=== PATIENT | male | born 1985 | race Caucasian/White ===

== ENCOUNTER 2019-11-25 07:01 | Emergency (ER) | payer SELFPAY ==
--- NOTE | 2019-11-25 08:29 | EDPHYS ---
Physician Documentation [facility] Name: Rod Gleason Age: 34 yrs Sex: Male : 1985 Arrival Date: 11/25/2019 Time: 07:05 Bed 17 Private MD: ED Physician Steve Moser HPI: 11/24 07:25 This 34 yrs old Male presents to ER via Ambulatory with complaints of Flu cp Symptoms. 07:25 The patient or guardian reports cough, that is intermittent, with productive sputum, cp flu symptoms, arthralgias. Onset: The symptoms/episode began/occurred 2 day(s) ago. Associated signs and symptoms: Pertinent positives: sore throat, Pertinent negatives: chest pain, diarrhea, fever, vomiting. 07:25 Patient denies any recent travel out of the country and denies any known close contact cp with persons diagnosed with coronavirus. Historical: - Allergies: 07:25 No Known Allergies; iw - Home Meds: 07:25 Adderall XR Oral [Active]; iw - PMHx: 07:25 None; iw - PSHx: 07:25 None; iw - Immunization history:: Adult Immunizations up to date. - Social history:: Smoking status: Patient reports the use of cigarette tobacco products, smokes one-half pack cigarettes per day. ROS: 07:30 Constitutional: Negative for fever, poor PO intake. cp 07:30 Eyes: Negative for injury, pain, redness, and discharge. cp 07:30 ENT: Positive for sore throat, Negative for drainage from ear(s), ear pain, difficulty cp swallowing, difficulty handling secretions. 07:30 Neck: Negative for pain with movement, pain at rest, stiffness. 07:30 Cardiovascular: Negative for chest pain. 07:30 Respiratory: Positive for cough, Negative for wheezing. 07:30 Abdomen/GI: Negative for abdominal pain, nausea, vomiting, and diarrhea. 07:30 Skin: Negative for rash. 07:30 Neuro: Negative for altered mental status, headache, weakness. 07:30 All other systems are negative. Exam: 07:35 Constitutional: The patient appears in no acute distress, alert, awake, non-toxic, well cp developed, well nourished. 07:35 Head/Face: Normocephalic, atraumatic. cp 07:35 Eyes: Periorbital structures: appear normal, Conjunctiva: normal, no exudate, no injection, Lids and lashes: appear normal, bilaterally. 07:35 ENT: External ear(s): are unremarkable, Ear canal(s): are normal, clear, TM's: dullness, bilaterally, Nose: is normal, Mouth: Lips: moist, Oral mucosa: moist, Posterior pharynx: Airway: no evidence of obstruction, patent, Tonsils: appear surgically absent, Uvula: midline, swelling, is not appreciated, erythema, that is moderate, exudate, is not appreciated. 07:35 Neck: ROM/movement: is normal, is supple, no meningismus, no nuchal rigidity, Lymph nodes: no appreciated lymphadenopathy. 07:35 Chest/axilla: Inspection: normal, Palpation: is normal, no crepitus, no tenderness. cp 07:35 Cardiovascular: Rate: tachycardic, Rhythm: regular. 07:35 Respiratory: the patient does not display signs of respiratory distress, Respirations: normal, no use of accessory muscles, no retractions, labored breathing, is not present, Breath sounds: decreased breath sounds, are not appreciated, stridor, is not appreciated, wheezing: is not appreciated. 07:35 Abdomen/GI: Exam negative for discomfort, distension, guarding, Inspection: abdomen appears normal. 07:35 Skin: no rash present. Vital Signs: 07:23 BP 170 / 105; Pulse 116; Resp 18 S; Temp 98.5(O); Pulse Ox 98% on R/A; Weight 90.72 kg; iw Height 5 ft. 10 in. (177.80 cm); Pain 7/10; 08:41 BP 167 / 89; Pulse 108; Resp 18; Temp 98.4; Pulse Ox 100% on R/A; ph 07:23 Body Mass Index 28.70 (90.72 kg, 177.80 cm) iw MDM: 07:22 Patient medically screened. cp 08:00 Differential Diagnosis: Bronchitis Influenza Pharyngitis Otitis Media Pneumonia. cp 08:25 Test interpretation: by ED physician or midlevel provider: plain radiologic studies, cp chest xray negative for infiltrates and focal pneumonia. 08:26 Data reviewed: vital signs, nurses notes, lab test result(s), and as a result, I will cp discharge patient. 08:26 Counseling: I had a detailed discussion with the patient and/or guardian regarding: the cp historical points, exam findings, and any diagnostic results supporting the discharge/admit diagnosis, lab results, to return to the emergency department if symptoms worsen or persist or if there are any questions or concerns that arise at home. 11/24 07:23 Order name: Influenza Screen (a \T\ B); Complete Time: 08:25 cp 11/24 07:23 Order name: Strep; Complete Time: 08:25 cp 11/24 08:25 Interpretation: Abnormal: GP A STREP SC \T\nbsp; GROUP A STREP SCREEN-- \T\nbsp; \T\nbsp; cp POSITIVE. 11/24 07:23 Order name: XRAY Chest Pa And Lat (2 Views) cp Administered Medications: No medications were administered Disposition: 17:14 Co-signature as Attending Physician, Steve Moser MD Did not see or evaluate patient. ps1 Signature for administrative purposes. . Disposition: 11/25/19 08:27 Discharged to Home. Impression: Streptococcal pharyngitis. - Condition is Stable. - Discharge Instructions: Strep Throat. - Prescriptions for Amoxicillin 875 mg Oral Tablet - take 1 tablet by ORAL route every 12 hours for 10 days; 20 tablet. Ibuprofen 800 mg Oral Tablet - take 1 tablet by ORAL route every 8 hours As needed take with food; 30 tablet. - Medication Reconciliation Form, Thank You Letter, Antibiotic Education, Prescription Opioid Use form. - Follow up: Private Physician; When: 2 - 3 days; Reason: Worsening of condition. - Problem is new. - Symptoms are unchanged. Signatures: Dispatcher [employer] Imani Heath RN RN Samantha Scott RN RN ph Srikanth Rodriguez PA PA cp Steve Moser MD MD ps1 Corrections: (The following items were deleted from the chart) 08:41 08:27 11/25/2019 08:27 Discharged to Home. Impression: Streptococcal pharyngitis. ph Condition is Stable. Forms are Medication Reconciliation Form, Thank You Letter, Antibiotic Education, Prescription Opioid Use. Follow up: Private Physician; When: 2 - 3 days; Reason: Worsening of condition. Problem is new. Symptoms are unchanged. cp
--- NOTE | 2019-11-25 08:29 | ER ---
Nurse's Notes [facility] Name: Rod Gleason Age: 34 yrs Sex: Male : 1985 Arrival Date: 11/25/2019 Time: 07:05 Bed 17 Private MD: Diagnosis: Streptococcal pharyngitis Presentation: 11/24 07:23 Chief complaint: Patient states: has had headache and sore throat X 2 days, +cough, iw denies fever, +body aches. Coronavirus screen: The patient has NOT traveled to a country currently being monitored by the [facility] within the last 14 days. Proceed with normal triage procedures. The patient has NOT had contact with any known and/or suspected case of coronavirus. Proceed with normal triage procedures. Ebola Screen: Patient negative for fever greater than or equal to 101.5 degrees Fahrenheit, and additional compatible Ebola Virus Disease symptoms Patient denies exposure to infectious person. Patient denies travel to an Ebola-affected area in the 21 days before illness onset. No symptoms or risks identified at this time. Initial Sepsis Screen: Does the patient meet any 2 criteria? HR > 90 bpm. No. Patient's initial sepsis screen is negative. Does the patient have a suspected source of infection? No. Patient's initial sepsis screen is negative. Risk Assessment: Do you want to hurt yourself or someone else? Patient reports no desire to harm self or others. 07:23 Method Of Arrival: Ambulatory iw 07:23 Acuity: IRINA 4 iw Historical: - Allergies: 07:25 No Known Allergies; iw - Home Meds: 07:25 Adderall XR Oral [Active]; iw - PMHx: 07:25 None; iw - PSHx: 07:25 None; iw - Immunization history:: Adult Immunizations up to date. - Social history:: Smoking status: Patient reports the use of cigarette tobacco products, smokes one-half pack cigarettes per day. Screenin:09 Abuse screen: Denies threats or abuse. Denies injuries from another. Nutritional ph screening: No deficits noted. Tuberculosis screening: No symptoms or risk factors identified. Fall Risk None identified. Assessment: 08:11 General: Appears in no apparent distress. comfortable, well groomed, Behavior is calm, ph cooperative, appropriate for age, Denies fever. Pain: Complains of pain in "body aches". Neuro: Level of Consciousness is awake, alert, obeys commands, Oriented to person, place, time, situation. Cardiovascular: Capillary refill < 3 seconds in bilateral fingers Patient's skin is warm and dry. Respiratory: Reports cough that is Airway is patent Respiratory effort is even, unlabored, Respiratory pattern is regular, symmetrical, Denies shortness of breath. GI: No signs and/or symptoms were reported involving the gastrointestinal system. Derm: Skin is intact, is healthy with good turgor, Skin is pink, warm \\T\\ dry. Musculoskeletal: Circulation, motion, and sensation intact. Range of motion: intact in all extremities. Vital Signs: 07:23 BP 170 / 105; Pulse 116; Resp 18 S; Temp 98.5(O); Pulse Ox 98% on R/A; Weight 90.72 kg; iw Height 5 ft. 10 in. (177.80 cm); Pain 7/10; 08:41 BP 167 / 89; Pulse 108; Resp 18; Temp 98.4; Pulse Ox 100% on R/A; ph 07:23 Body Mass Index 28.70 (90.72 kg, 177.80 cm) iw ED Course: 07:05 Patient arrived in ED. ag5 07:17 Srikanth Rodriguez PA is PHCP. cp 07:17 Steve Moser MD is Attending Physician. cp 07:25 Triage completed. iw 07:25 Arm band placed on. iw 07:30 Flu and/or RSV swab sent to lab. Strep swab sent to lab. em1 07:38 XRAY Chest Pa And Lat (2 Views) In Process Unspecified. EDMS 08:08 Samantha Scott, RN is Primary Nurse. ph 08:10 Patient has correct armband on for positive identification. Bed in low position. Call ph light in reach. Side rails up X 1. Pulse ox on. NIBP on. Door closed. Noise minimized. Warm blanket given. 08:40 No provider procedures requiring assistance completed. IV discontinued, intact, ph bleeding controlled, No redness/swelling at site. Pressure dressing applied. Administered Medications: No medications were administered Outcome: 08:27 Discharge ordered by . cp 08:39 Discharged to home ambulatory, with significant other. ph 08:39 Condition: good 08:39 Discharge instructions given to patient, Instructed on discharge instructions, follow up and referral plans. Demonstrated understanding of instructions, follow-up care, medications, Prescriptions given X 2. 08:41 Patient left the ED. ph Signatures: Dispatcher [employer] Imani Heath RN RN Josué Bunch em1 Samantha Scott RN RN ph Srikanth Rodriguez, KOBE Angel, Guille ag5
--- NOTE | 2019-11-25 08:39 | RAD REPORT ---
EXAM DESCRIPTION: RAD - Chest Pa And Lat (2 Views) - 11/25/2019 7:39 am CLINICAL HISTORY: COUGH Chest pain. COMPARISON: No comparisons FINDINGS: The lungs are clear. The heart is normal in size. No displaced fractures. IMPRESSION: No acute or concerning finding suspected.
[2019-11-25 08:51] VITALS: BP 167/89; TEMP 98.4; O2SAT 100
== END 2019-11-25 08:41 | disposition home or self-care (01) ==
LOC: ER 07:01
DX: J02.0 Streptococcal pharyngitis (principal); F17.210 Nicotine dependence, cigarettes, uncomplicated
CPT/HCPCS: 71046; 87081; 87804; 99284